=== PATIENT | female | born 1980 | race Caucasian/White ===

== ENCOUNTER 2018-02-10 05:50 | Day surgery (SDC) | payer OTHER ==
[~2018-02-10] VITALS: Ht 165.1 cm; Wt 81.6 kg
[2018-02-10] MEDS ORDERED: CEFAZOLIN SOD 1 GM/ ISO 50 ML PREMIX IV ONE (07:00)
[2018-02-10] MEDS ORDERED: fentaNYL CITRATE 250 MCG/5 ML AMP IV ONE (07:45)
[2018-02-10] MEDS ORDERED: MIDAZOLAM HCL 5 MG/5 ML VIAL IVP ONE (07:45)
[2018-02-10] MEDS ORDERED: BUPIVACAINE /PF 0.25% 30 ML VIAL INJ ONE (07:45)
[2018-02-10] MEDS ORDERED: ONDANSETRON HCL 4 MG/2 ML VIAL IVP ONE (07:45)
[2018-02-10] MEDS ORDERED: LR 1,000 ML IV.SOLN IV ONE (07:45)
[2018-02-10] MEDS ORDERED: NS IRRIG SOLN 5000 ML IR ONE (07:45)
[2018-02-10] MEDS ORDERED: PROPOFOL 200MG/ 20ML VIAL (DIPRIVAN) IV ONE (07:45)
[2018-02-10] MEDS ORDERED: KETOROLAC TROMETHAMINE 30 MG VIAL IVP ONE (07:45)
[2018-02-10] MEDS ORDERED: NS 1000 ML IV.SOLN IV ONE (07:45)
[2018-02-10] MEDS ORDERED: LR 1,000 ML IV SCH (09:33)
[2018-02-10] MEDS ORDERED: HYDROmorphone 1 MG INJ. 1 MG/ML AMPUL IVP PRN (09:45)
[2018-02-10] MEDS ORDERED: MEPERIDINE HCL/PF 25 MG/ML DISP.SYRIN IVP PRN (09:45)
[2018-02-10] MEDS ORDERED: METOCLOPRAMIDE HCL 10 MG/2 ML VIAL IVP PRN (09:45)
[2018-02-10] MEDS ORDERED: HYDROmorphone 2 MG/ML VIAL IVP PRN (09:45)
[2018-02-10] MEDS ORDERED: IBUPROFEN 800 MG TABLET PO PRN ×2 (10:30)
[2018-02-10] MEDS ORDERED: ONDANSETRON HCL 4 MG/2 ML VIAL IVP PRN (10:30)
[2018-02-10] MEDS ORDERED: HYDROmorphone 2 MG TAB PO ONE ×2 (10:30→14:30)
[2018-02-10] MEDS ORDERED: HYDROmorphone 1 MG INJ. 1 MG/ML AMPUL ONE (11:26)
[2018-02-10 12:06] VITALS: BP_SYST 117
[2018-02-10] MEDS ORDERED: ONDANSETRON HCL 4 MG/2 ML VIAL ONE (14:47)
== END 2018-02-10 17:00 | disposition home or self-care (01) ==
LOC: SDS 05:50 → SMU 05:50 → SDS 17:00
PROVIDERS: ATTEND Obstetrics & Gynecology
DX: N80.0 Endometriosis of uterus (principal); N87.9 Dysplasia of cervix uteri, unspecified; G43.009 Migraine without aura, not intractable, without status migrainosus; E04.1 Nontoxic single thyroid nodule; Z98.890 Other specified postprocedural states; Z82.49 Family history of ischemic heart disease and other diseases of the circulatory system; Z83.3 Family history of diabetes mellitus; Z79.899 Other long term (current) drug therapy; Z88.8 Allergy status to other drugs, medicaments and biological substances; E66.3 Overweight
CPT/HCPCS: 36415; 58571; 86886; 86900; 86901; 88307; J0690; J1170; J1885; J2250; J2405; J2704; J3010; J3490; J7030; J7120; E0190